=== PATIENT | female | born 1995 | race Asian ===

== ENCOUNTER 2023-04-01 13:39 | Emergency (ER) | payer BC ==
[2023-04-01 14:13] VITALS: RESP 16; BMI 19.0
[2023-04-01] MEDS ORDERED: SODIUM CHLORIDE 500 ML IV STA (14:49)
[2023-04-01] MEDS ORDERED: ACETAMINOPHEN 1000 MG/100 ML BAG IVPB ONE (14:50)
[2023-04-01 15:19] LABS: BASO % 0.5 % (0-2.0); EOS % 0.8 % (0-4.5); HEMATOCRIT 41.6 % (32.4-45.2); HEMOGLOBIN 13.7 GM/dL (10.7-15.3); LYMPH % 12.5 % (8-40); MCH 29.7 pg (25.7-33.7); MEAN CELL VOLUME 89.9 fl (80-96); MEAN PLT VOLUME 7.6 fl (7.5-11.1); MONO % 7.4 % (3.8-10.2); NEUT % 78.8 % (42.8-82.8); PLATELET COUNT 255 10^3/uL (134-434); RBC 4.63 M/mm3 (3.60-5.2); RDW 13.4 % (11.6-15.6); URINE APPEARANCE CLEAR; URINE BILIRUBIN NEGATIVE (NEGATIVE); URINE COLOR YELLOW; URINE GLUCOSE (UA) NEGATIVE (NEGATIVE); URINE KETONE NEGATIVE (NEGATIVE); URINE LEUK ESTERASE NEGATIVE (NEGATIVE); URINE NITRITE NEGATIVE (NEGATIVE); URINE PROTEIN NEGATIVE (NEGATIVE); URINE UROBILINOGEN 0.2 mg/dL (0.2-1.0); WHITE BLOOD COUNT 8.1 K/mm3 (4.0-10.0)
[2023-04-01 15:22] LABS: HCG,QUALITATIVE URINE Negative
[2023-04-01] MEDS ORDERED: ACETAMINOPHEN INJECTION 100 ML IVPB ONE (15:23)
[2023-04-01 15:36] LABS: POTASSIUM 4.2 mmol/L (3.5-5.1)
[2023-04-01 15:39] LABS: BLOOD UREA NITROGEN 16.9 mg/dL (7-18); CALCIUM 9.4 mg/dL (8.5-10.1); MAGNESIUM 2.3 mg/dL (1.8-2.4)
[2023-04-01 15:43] LABS: BILIRUBIN,TOTAL 0.5 mg/dL (0.2-1); CREATININE 0.7 mg/dL (0.55-1.3)
[2023-04-01] MEDS ORDERED: FAMOTIDINE 20 MG/50 ML IVPB 20 MG/50 ML MG IVPB ONE (16:11)
[2023-04-01] MEDS ORDERED: FAMOTIDINE 10 MG/ML VIAL IVPB ONE (16:21)
[2023-04-01 18:06] VITALS: BP 112/53; PULSE 80; TEMP 98.4
== END 2023-04-01 19:33 | disposition home or self-care (01) ==
LOC: JER 13:39
PROC: 3E033GC Introduction of Other Therapeutic Substance into Peripheral Vein, Percutaneous Approach (ICD-10-PCS; principal; 2023-04-01)
PROC: 3E033NZ Introduction of Analgesics, Hypnotics, Sedatives into Peripheral Vein, Percutaneous Approach (ICD-10-PCS; 2023-04-01)
PROC: 3E0337Z Introduction of Electrolytic and Water Balance Substance into Peripheral Vein, Percutaneous Approach (ICD-10-PCS; 2023-04-01)
DX: R10.13 Epigastric pain (principal); R11.0 Nausea; K29.70 Gastritis, unspecified, without bleeding
CPT/HCPCS: 36415; 80053; 81003; 83690; 83735; 84703; 85025; 99284-25

== ENCOUNTER 2023-11-10 12:29 | Emergency (ER) | payer BC ==
[2023-11-10 13:15] VITALS: BP 113/75; PULSE 70; RESP 16; TEMP 98.1; BMI 19.5
[2023-11-10] MEDS ORDERED: MECLIZINE HCL 25 MG TABLET (FP) ONE (13:46)
[2023-11-10] MEDS ORDERED: METOCLOPRAMIDE HCL INJECTION 10 MG/2 ML VIAL ONE (13:46)
[2023-11-10] MEDS: MECLIZINE HCL 25 MG TABLET (FP) PO ONE (14:04)
[2023-11-10] MEDS: SODIUM CHLORIDE 0.9% 500 ML INFUS.BAG IV ONE (14:04)
[2023-11-10] MEDS: METOCLOPRAMIDE HCL INJECTION 10 MG/2 ML VIAL IVPB ONE (14:04)
[2023-11-10 14:13] LABS: BASO % 1.3 % (0-2.0); HEMATOCRIT 41.4 % (32.4-45.2); HEMOGLOBIN 13.8 GM/dL (10.7-15.3); LYMPH % 30.6 % (8-40); MCH 30.5 pg (25.7-33.7); MCHC 33.4 g/dl (32.0-36.0); MEAN CELL VOLUME 91.3 fl (80-96); MEAN PLT VOLUME 8.2 fl (7.5-11.1); MONO % 5.8 % (3.8-10.2); NEUT % 61.3 % (42.8-82.8); PLATELET COUNT 270 10^3/uL (134-434); RBC 4.53 M/mm3 (3.60-5.2); RDW 13.7 % (11.6-15.6); WHITE BLOOD COUNT 6.6 K/mm3 (4.0-10.0)
[2023-11-10 14:35] LABS: POTASSIUM 4.1 mmol/L (3.5-5.1)
[2023-11-10 14:36] LABS: CALCIUM 9.8 mg/dL (8.5-10.1)
[2023-11-10 14:37] LABS: ALBUMIN 4.2 g/dl (3.4-5.0)
[2023-11-10 14:40] LABS: CREATININE 0.6 mg/dL (0.55-1.3)
[2023-11-10 14:41] LABS: BILIRUBIN,TOTAL 0.6 mg/dL (0.2-1); TOT PROT 8.1 g/dl (6.4-8.2)
[2023-11-10 14:51] LABS: PH,URINE 5.5 (5.0-8.0); URINE APPEARANCE CLEAR; URINE BILIRUBIN NEGATIVE (NEGATIVE); URINE COLOR YELLOW; URINE GLUCOSE (UA) NEGATIVE (NEGATIVE); URINE KETONE NEGATIVE (NEGATIVE); URINE LEUK ESTERASE NEGATIVE (NEGATIVE); URINE NITRITE NEGATIVE (NEGATIVE); URINE PROTEIN NEGATIVE (NEGATIVE); URINE UROBILINOGEN 0.2 mg/dL (0.2-1.0)
[2023-11-10 15:31] LABS: HIV INTERPRETATION NEGATIVE (NEGATIVE)
== END 2023-11-10 16:14 | disposition home or self-care (01) ==
LOC: JER 12:29
PROC: 3E033GC Introduction of Other Therapeutic Substance into Peripheral Vein, Percutaneous Approach (ICD-10-PCS; principal; 2023-11-10)
DX: R42 Dizziness and giddiness (principal); R51.9 Headache, unspecified; Z20.822 Contact with and (suspected) exposure to COVID-19
CPT/HCPCS: 0241U-QW; 36415; 80053; 81003; 84703; 85025; 86803; 87086; 87389; 93005; 93010; 99284-25